=== PATIENT | male | born 1955 | race Caucasian/White ===

== ENCOUNTER 2019-01-22 07:08 | Outpatient (CLI) | payer OTHER ==
[2019-01-22 08:42] LABS: BILIRUBIN,URINE NEGATIVE (NEGATIVE); GLUCOSE, URINE (UA) NEGATIVE (NEGATIVE); KETONES,URINE (UA) NEGATIVE (NEGATIVE); LEUKOCYTE ESTERASE, URINE NEGATIVE (NEGATIVE); NITRITE,URINE NEGATIVE (NEGATIVE); OCCULT BLOOD,URINE NEGATIVE (NEGATIVE); PH,URINE 6.5 PH (5.0-7.5); PROTEIN,URINE NEGATIVE (NEGATIVE); UROBILINOGEN,URINE 0.2 (NORMAL) E.U./dL (NORMAL)
[2019-01-22 08:44] LABS: CLARITY,URINE CLEAR (CLEAR)
[2019-01-22 09:13] LABS: BASOPHILS % (AUTO) 0.4 %; EOSINOPHILS # (AUTO) 0.2 10^3/uL (0.0-0.7); LYMPHOCYTES # (AUTO) 1.9 10^3/uL (1.5-3.5); LYMPHOCYTES % (AUTO) 36.9 %; MEAN CORPUSCULAR HGB CONC 32.9 g/dL (32.0-36.0); MEAN CORPUSCULAR VOLUME 94.2 fL (80.0-94.0); MEAN PLATELET VOLUME 11.8 fL (7.4-11.4); MONOCYTES # (AUTO) 0.6 10^3/uL (0.0-1.0); MONOCYTES % (AUTO) 11.6 %; NEUTROPHILS # (AUTO) 2.4 10^3/uL (1.5-6.6); NEUTROPHILS % (AUTO) 47.7 %; PLT - PLATELET COUNT 202 10^3/uL (130-450); RED BLOOD COUNT 4.52 10^6/uL (4.70-6.10); RED CELL DISTRIBUTION WIDTH 13.2 % (12.0-15.0)
[2019-01-22 09:28] LABS: ALBUMIN 4.2 g/dL (3.2-5.5); ALBUMIN/GLOBULIN RATIO 1.4 (1.0-2.2); BILIRUBIN,TOTAL 0.6 mg/dL (0.2-1.0); CALCIUM 9.4 mg/dL (8.5-10.3); CREATININE 0.8 mg/dL (0.6-1.2); TOTAL PROTEIN 7.1 g/dL (6.7-8.2)
--- NOTE | 2019-01-22 13:30 | Ultrasound Report ---
Reason: R FLANK PAIN Procedure Date: 01/22/2019 Accession Number: [id number] / [id number] Procedure: US - Retroperitoneal CPT Code: FULL RESULT: EXAM: RENAL ULTRASOUND EXAM DATE: 01/22/2019 08:53 AM. CLINICAL HISTORY: Right flank pain. COMPARISON: None. TECHNIQUE: Real-time scanning was performed with static images obtained. FINDINGS: Right Kidney: 12.1 cm. Normal echotexture with no obstructing stones, contour-deforming masses, or hydronephrosis. Inferior pole likely contains a nonobstructing 0.3 cm calculus. A 1 cm inferior pole cyst is noted. Left Kidney: 11.9 cm. There is a mild amount of hydronephrosis. No mass or obstructing calculi. Bladder: Bilateral jets seen. The prevoid bladder volume was 402 cc. The postvoid bladder volume was 83 cc. Prostatic hypertrophy is noted. Other: None. IMPRESSION: Mild left hydronephrosis with preservation of the ureteral jet and postvoid residual as described. [facility]
== END 2019-01-22 07:09 | disposition home or self-care (01) ==
LOC: DI 07:08
PROVIDERS: ATTEND Specialist
DX: N13.30 Unspecified hydronephrosis (principal); R10.9 Unspecified abdominal pain
CPT/HCPCS: 36415; 76770; 80053; 81001; 81003; 85025; 87086

== ENCOUNTER 2019-02-14 06:14 | Outpatient (CLI) | payer OTHER ==
--- NOTE | 2019-02-15 08:41 | CT Report ---
Reason: HYDRONEPHROSIS W URETERAL STRICTURE, NEC Procedure Date: 02/14/2019 Accession Number: [id number] / [id number] Procedure: CT - Abdomen/Pelvis WO CPT Code: FULL RESULT: EXAM: CT ABDOMEN AND PELVIS (CT KUB) EXAM DATE: 02/14/2019 06:37 AM. CLINICAL HISTORY: Hydronephrosis with ureteral stricture, NEC. COMPARISONS: Retroperitoneal ultrasound 01/22/2019 7:44 AM. TECHNIQUE: Routine axial helical CT imaging was performed through the abdomen and pelvis without IV contrast. Reconstructions: Coronal and sagittal. In accordance with CT protocol optimization, one or more of the following dose reduction techniques were utilized for this exam: automated exposure control, adjustment of mA and/or KV based on patient size, or use of iterative reconstructive technique. FINDINGS: Lung Bases: Unremarkable. Right Kidney/Ureter: No stones, hydronephrosis, or hydroureter. No perinephric fat stranding. Posterior cortical 4 mm hyperdense nodule likely represents a hyperdense cyst although it is not definitive. Left Kidney/Ureter: No stones or perinephric stranding. No hydroureter or raissa hydronephrosis. There is a pattern which probably represents small parapelvic cysts. Other Solid Organs: Noncontrast images of the solid organs are grossly unremarkable. Gallbladder/Bile Ducts: Unremarkable. Peritoneal Cavity: No free fluid, free air or raissa adenopathy. Colonic diverticulosis without evidence of diverticulitis.. The appendix is normal. Pelvic Organs: No bladder stones or wall thickening. Noncontrast images of the visualized pelvic organs are unremarkable apart from prostate calcifications. Vasculature: Mild calcifications, without aneurysm. Other: Degenerative disease of the spine, greatest at L4-L5. IMPRESSION: 1. No urinary tract stones or raissa obstruction. 2. Tiny right renal probable hyperdense cyst and left renal small probable parapelvic cysts. 3. No definite acute abnormality of the abdomen or pelvis, by noncontrast imaging. [facility]
== END 2019-02-14 06:15 | disposition home or self-care (01) ==
LOC: DI 06:14
PROVIDERS: ATTEND Internal Medicine
DX: N13.1 Hydronephrosis with ureteral stricture, not elsewhere classified (principal)
CPT/HCPCS: 74176

== ENCOUNTER 2020-11-21 07:48 | Outpatient (CLI) | payer MEDICARE, OTHER ==
[2020-11-21] MEDS ORDERED: IOPAMIDOL-300 100 ML VIAL ONE (07:57)
[2020-11-21] MEDS ORDERED: IOPAMIDOL-300 100 ML VIAL IVP ONE (08:29)
--- NOTE | 2020-11-21 20:45 | CT Report ---
PROCEDURE: IVP INDICATIONS: R FLANK PAIN, HX OF HYDRONEPHROSIS, RENAL CYSTS CONTRAST: IV CONTRAST: Isovue 300 ml: 140 PO CONTRAST: *NO PO CONTRAST TECHNIQUE: After the administration of intravenous contrast, 5 mm thick sections acquired from the diaphragms to the symphysis. 5 mm thick coronal and sagittal reformats were acquired. For radiation dose reducti on, the following was used: automated exposure control, adjustment of mA and/or kV according to ana laura ent size. COMPARISON: None. FINDINGS: Image quality: Excellent. Lung bases: Lung bases demonstrate mild atelectasis, otherwise clear. Heart size is normal. Urinary system: Both kidneys are normal in size and enhancement. Fluid density cystic lesions are no nilson adjacent to the renal pelvises, left greater than right. Contrast-filled renal calyces are dana l in morphology. Contrast filled portions of both ureters are normal in caliber. There is likely mil d wall thickening of the bladder. No filling defect. Solid organs: Liver and spleen are normal in size and enhancement. Gallbladder is unremarkable Johan iary system is non dilated. Pancreas enhances normally. No adrenal nodules. Peritoneum and bowel: Bowel loops demonstrate normal wall thickness and caliber. No free fluid or a ir. There is diffuse colon diverticula most prominent within the sigmoid colon. No wall thickening o r surrounding inflammation to suggest acute diverticulitis. Nodes and vessels: No retroperitoneal or mesenteric adenopathy by size criteria. Aorta and inferior vena cava are normal in size. Abdominal wall: No ventral hernias. Pelvis: No pathologic free pelvic fluid. No inguinal hernias or adenopathy. There is mild prostatom egaly with dystrophic calcifications. There is mild mass effect on the inferior aspect of the bladder . Bones: No suspicious bony lesions. Degenerative changes of the spine were sent to L4-L5 where there is complete joint space loss. No vertebral body compression fractures. IMPRESSION: No evidence of urinary tract calcifications or obstructive uropathy. Renal sinus cysts. Mild wall thickening of the bladder in the setting of prostatomegaly and this may represent bowel obs truction. Diverticulosis without evidence of diverticulitis. Reviewed by: Eze Trejo DO on 11/21/2020 7:44 PM [facility] Approved by: Eze Trejo DO on 11/21/2020 7:44 PM [facility] Station ID: [id number]
== END 2020-11-21 07:49 | disposition home or self-care (01) ==
LOC: DI 07:48
PROVIDERS: ATTEND Physician Assistant Medical
DX: N28.1 Cyst of kidney, acquired (principal); R93.41 Abnormal radiologic findings on diagnostic imaging of renal pelvis, ureter, or bladder; K57.30 Diverticulosis of large intestine without perforation or abscess without bleeding
CPT/HCPCS: 74178; Q9967

== ENCOUNTER 2020-12-14 06:52 | Outpatient (CLI) | payer MEDICARE, OTHER ==
--- NOTE | 2020-12-14 08:30 | Ultrasound Report ---
PROCEDURE: Aorta Screening INDICATIONS: AAA SCREEN TECHNIQUE: Real time scanning was performed of the aorta and iliac arteries, with image documentatio n. COMPARISON: CT abdomen/pelvis 02/14/[address] IVP 11/21/2020 reviewed. FINDINGS: Aorta: Proximal aortic diameter measures 2.7 cm. Mid-aorta measures 1.9 cm. Distal aortic diameter is 1.8 cm. Iliac arteries: Right common iliac artery measures 1.1 cm. Left common iliac artery measures 1.1 cm . IMPRESSION: No aneurysm found, no dissection suspected. These findings are concordant with the appearance of the aorta from recent CT scanning 11/21/2020. Reviewed by: Js Coker MD on 12/14/2020 7:29 AM [facility] Approved by: Js Coker MD on 12/14/2020 7:29 AM [facility] Station ID: [id number]
== END 2020-12-14 06:53 | disposition home or self-care (01) ==
LOC: DI 06:52
PROVIDERS: ATTEND Physician Assistant Medical
DX: Z13.6 Encounter for screening for cardiovascular disorders (principal)

== ENCOUNTER 2022-06-17 12:09 | Outpatient (CLI) | payer MEDICARE, OTHER ==
--- NOTE | 2022-06-17 16:42 | XRAY Report ---
PROCEDURE: Chest 2 View X-Ray INDICATIONS: CHRONIC COUGH TECHNIQUE: 2 views of the chest were acquired. COMPARISON: None FINDINGS: Surgical changes and devices: None. Lungs and pleura: No pleural effusions or pneumothorax. Lungs are clear. Mediastinum: Mediastinal contours are normal. Heart size is normal. Bones and chest wall: No suspicious bony abnormalities. Soft tissues appear unremarkable. IMPRESSION: No acute pulmonary process. Reviewed by: Silvana Brito MD on 06/17/2022 4:40 PM [facility] Approved by: Silvana Brito MD on 06/17/2022 4:40 PM [facility] Station ID: [id number]
== END 2022-06-17 12:10 | disposition home or self-care (01) ==
LOC: DI 12:09
PROVIDERS: ATTEND Physician Assistant
DX: R05.3 Chronic cough (principal)

== ENCOUNTER 2022-08-15 07:17 | Outpatient (CLI) | payer MEDICARE, OTHER ==
[2022-08-15 12:09] LABS: BASOPHILS % (AUTO) 0.4 %; EOSINOPHILS # (AUTO) 0.1 10^3/uL (0.0-0.7); EOSINOPHILS % (AUTO) 1.6 %; HCT - HEMATOCRIT 44.8 % (42.0-52.0); HGB - HEMOGLOBIN 14.7 g/dL (14.0-18.0); LYMPHOCYTES % (AUTO) 43.6 %; MEAN CORPUSCULAR HEMOGLOBIN 29.8 pg (27.0-31.0); MEAN CORPUSCULAR HGB CONC 32.8 g/dL (32.0-36.0); MEAN CORPUSCULAR VOLUME 90.9 fL (80.0-94.0); MEAN PLATELET VOLUME 11.6 fL (7.4-11.4); MONOCYTES # (AUTO) 0.7 10^3/uL (0.0-1.0); MONOCYTES % (AUTO) 9.4 %; NEUTROPHILS # (AUTO) 3.1 10^3/uL (1.5-6.6); NEUTROPHILS % (AUTO) 44.7 %; PLT - PLATELET COUNT 227 10^3/uL (130-450); RED BLOOD COUNT 4.93 10^6/uL (4.70-6.10); RED CELL DISTRIBUTION WIDTH 13.3 % (12.0-15.0)
[2022-08-15 12:14] LABS: ALBUMIN 4.3 g/dL (3.2-5.5); ALBUMIN/GLOBULIN RATIO 1.3 (1.0-2.2); ALKALINE PHOSPHATASE 46 IU/L (42-121); ALT ALANINE AMINOTRANSFERASE 35 IU/L (10-60); AST ASPARTATE AMINOTRANSFERASE 22 IU/L (10-42); BILIRUBIN,TOTAL 0.8 mg/dL (0.2-1.0); BUN - BLOOD UREA NITROGEN 20 mg/dL (6-20); CALCIUM 9.6 mg/dL (8.5-10.3); CARBON DIOXIDE - CO2 25 mmol/L (21-32); CHLORIDE 101 mmol/L (101-111); CHOL/HDL RATIO 4.5 (<5.0); CHOLESTEROL 227 mg/dL; CREATININE 0.9 mg/dL (0.6-1.2); GFR - MDRD 84 (>89); GLUCOSE 115 mg/dL (70-100); HDL CHOLESTEROL 51 mg/dL; LDL CHOLESTEROL,CALCULATED 161 mg/dL; LDL/HDL RATIO 3.2 (<3.6); POTASSIUM 4.5 mmol/L (3.5-5.0); SODIUM 139 mmol/L (135-145); TOTAL PROTEIN 7.7 g/dL (6.7-8.2); TRIGLYCERIDES 76 mg/dL; VLDL CHOLESTEROL 15 mg/dL
== END 2022-08-15 07:18 | disposition home or self-care (01) ==
LOC: LAB.N 07:17
PROVIDERS: ATTEND Nurse Practitioner
DX: Z00.00 Encounter for general adult medical examination without abnormal findings (principal); Z13.220 Encounter for screening for lipoid disorders; Z12.5 Encounter for screening for malignant neoplasm of prostate
CPT/HCPCS: 36415; 80053; 80061; 85025; G0103; 83721; 84153